=== PATIENT | female | born 1990 | race Caucasian/White ===

== ENCOUNTER → 2018-09-26 | Outpatient (CLI) | payer OTHER ==
[~2018-09-26] MED LIST: AMOX500 PO; CODGUAEL PO; LEVSOD100; LEVSOD100 PO; LEVSOD50 PO; Naprosyn500 MG PO; PENVK500 PO; TRAM50 PO
[2018-09-28 15:07] LABS: HPV 16 Negative (Negative); HPV 18 Negative (Negative); HPV OTHER HR TYPES Negative (Negative)
== END ==
LOC: LAB SHORT 15:28 → LAB 15:28
PROVIDERS: Nurse Practitioner Family
DX: Z01.419 Encounter for gynecological examination (general) (routine) without abnormal findings (principal)
CPT/HCPCS: 87624; G0145